=== PATIENT | male | born 1960 | race Caucasian/White ===

== ENCOUNTER 2017-03-26 07:45 | Day surgery (SDC) | payer OTHER ==
[2017-03-26] VITALS (8 sets, daily range): BP systolic 125–171; BP diastolic 73–101; PULSE 62–76; RESP 16–20; TEMP 97.8; O2SAT 92–97
[~2017-03-26] VITALS: Ht 180.3 cm; Wt 100.0 kg
[2017-03-26] MEDS ORDERED: TRAM50TA PO (08:01)
[2017-03-26] MEDS ORDERED: CYAN1TAB24 (08:01)
[2017-03-26] MEDS ORDERED: VITA200013 (08:01)
[2017-03-26] MEDS ORDERED: SODIUM CHLOR 0.9% 1000 ML IV SCH (08:15)
[2017-03-26] MEDS ORDERED: LIDOCAINE 1%/EPINEPHrine 1:100,000 SOLN 20 ML VIAL ONE (09:27)
--- NOTE | 2017-03-26 09:43 | RADRPT ---
EXAM DATE/TIME: 03/26/2017 09:37 [facility] COMPARISON: No previous studies available for comparison. INDICATIONS : Patient presents with chronic ITP here for an IV to undergo a liver biopsy. MEDICAL HISTORY : Thrombocytopenia SURGICAL HISTORY : Broken ankle ENCOUNTER: Initial ACUITY: 1 day PAIN SCORE: 0/10 IMAGE SERIES: ACCESS: Right basilic vein DEVICE(S): 1.) 3/4 Belgian Dilator PROCEDURE : 1. Ultrasound guided venous access. The risks, benefits and alternatives to the procedure were explained and verbal and written consent w as obtained. The site was prepped in sterile fashion. Full sterile technique was used, including ca p, mask, sterile gloves and gown and a large sterile sheet. Hand hygiene and 2% chlorhexidine and/or betadine/alcohol prep was utilized per protocol for cutaneous antisepsis. Sterile gel and sterile p robe cover were utilized for ultrasound guidance. The skin and subcutaneous tissues were infiltrate d with local anesthetic solution. With ultrasound guidance the prescribed vein was punctured for venous access. A 4 Belgian dilator was placed and was flushed and locked with heparin. The patient tolerated procedure well and there were n o complications. CONCLUSION: Uncomplicated ultrasound guided venous access. Floyd Boone MD on March 26, 2017 at 9:41 Board Certified Radiologist. This report was verified electronically.
[2017-03-26] MEDS ORDERED: MIDAZOLAM HCL 2 MG/2 ML VIAL ONE ×2 (09:50→10:06)
[2017-03-26] MEDS ORDERED: HYDROmorphone HCL 2 MG TAB PO PRN (10:15)
--- NOTE | 2017-03-26 10:16 | PD.RAD ---
Post CT Procedure Prog Note Pre Procedure Diagnosis: (1) Abnormal LFTs Post Procedure Diagnosis: (1) Abnormal LFTs Procedure Date: Mar 26, 2017 Supervising Radiologist: Floyd Loomis Estimated blood loss: minimal Anesthesia: Conscious Sedation Plan of Activity Patient to Unit: [facility] Patient Condition: Good See PACS Report for procedural detail/treatment Biopsy Imaging Guidance: CT Side: Right Biopsy Procedure: Liver Specimen: Core Biopsy Additional Detail: 2 18G cores taken Plan to [facility] for monitoring then discharge in 4 hours. Floyd Loomis MD Mar 26, 2017 10:16
--- NOTE | 2017-03-26 14:58 | RADRPT ---
EXAM DATE/TIME: 03/26/2017 09:54 [facility] COMPARISON: No previous studies available for comparison. INDICATIONS : Abnormal liver function. SEDATION TIME: 15 minutes BIOPSY SITE: liver MEDICATION(S): 1.) 3 mg midazolam (Versed) IV 2.) 150 mcg fentanyl (Sublimaze) IV DEVICE(S): 1.) 18 gauge Walker blunt needle 10cm MEDICAL HISTORY : None. SURGICAL HISTORY : None. ENCOUNTER: Initial ACUITY: 1 day PAIN SCORE: 0/10 LOCATION: Right lateral A total of two core specimen(s) were obtained and sent to the laboratory for pathologic evaluation. PROCEDURE: 1. CT guided liver biopsy. 2. Conscious sedation with continuous EKG and oximetry monitoring. Prior to the procedure informed consent was obtained. Any appropriate prior imaging studies were rev iewed. Using automated exposure control and adjustment of the mA and/or kV according to patient size, radiat ion dose was kept as low as reasonably achievable to obtain optimal diagnostic quality images. DICOM format image data is available electronically for review and comparison. The site was prepped in a sterile fashion. Full sterile technique was used, including cap, mask, alanna rile gloves and gown and a large sterile sheet. Hand hygiene and 2% chlorhexidine and/or betadine/al cohol prep was utilized per protocol for cutaneous antisepsis. The skin and subcutaneous tissues wer e infiltrated with local anesthetic solution. With CT guidance the previously identified target was localized. Biopsy was performed using the presc ribed needle as above. Adequate hemostasis was obtained with compression at the puncture site. Follow-up CT scan reveals no hemorrhage. The patient tolerated the procedure well and there were no complications. The patient was returned to the Radiology Outpatient Unit in stable condition. CONCLUSION: Uncomplicated CT guided biopsy of the right lobe of the liver. Floyd Loomis MD on March 26, 2017 at 14:55 Board Certified Radiologist. This report was verified electronically.
== END 2017-03-26 14:24 | disposition home or self-care (01) ==
LOC: HRAD 07:45 → HRIP 07:45 → HRAD 14:24
PROVIDERS: ATTEND Physician Assistant Medical
DX: R94.5 Abnormal results of liver function studies (principal); D69.3 Immune thrombocytopenic purpura; K75.81 Nonalcoholic steatohepatitis (NASH)
CPT/HCPCS: 47000; 76937; 77012; 88307; 88313; J2250; J3010; J7030